=== PATIENT | female | born 1990 | race Caucasian/White ===

== ENCOUNTER 2018-08-24 19:38 | Observation (INO) | payer BC ==
[~2018-08-24] VITALS: Ht 172.7 cm; Wt 100.0 kg
[2018-08-24 20:17] LABS: BASOPHILS # (AUTO) 0.09 x10^3/uL (0-0.1); BASOPHILS % (AUTO) 1 % (0-1); EOSINOPHILS # (AUTO) 0.09 x10^3/uL (0-0.4); EOSINOPHILS % (AUTO) 1 % (1-7); LYMPHOCYTES # (AUTO) 1.51 x10^3/uL (1-3.4); LYMPHOCYTES % (AUTO) 11 % (22-44); MD NO; MEAN CORPUSCULAR HEMOGLOBIN 29.6 pg (27.0-34.8); MEAN CORPUSCULAR HGB CONC 34.1 g/dL (32.4-35.8); MEAN CORPUSCULAR VOLUME 86.8 fL (80-100); MEAN PLATELET VOLUME 10.8 fL (7.4-10.4); MONOCYTES # (AUTO) 0.45 x10^3/uL (0.2-0.8); MONOCYTES % (AUTO) 3 % (2-9); NEUTROPHILS # (AUTO) 11.43 x10^3/uL (1.8-6.8); NEUTROPHILS % (AUTO) 84 % (42-75); PLATELET COUNT 194 x10^3/uL (130-400); RED CELL DISTRIBUTION WIDTH 11.8 % (9.6-15.2)
[2018-08-24 20:23] LABS: MICROSCOPIC AUTO
[2018-08-24 20:23] LABS: ALANINE AMINOTRANSFERASE 17 U/L (12-78); ALBUMIN 3.2 g/dL (3.4-5.0); ANION GAP 10 mmol/L (5-15); CALCIUM 9.3 mg/dL (8.5-10.1); CHLORIDE 108 mmol/L (98-107)
[2018-08-24 20:24] LABS: CULTURE INDICATED? YES
[2018-08-24 20:40] LABS: ALKALINE PHOSPHATASE 73 U/L (45-117); BILIRUBIN,TOTAL 0.2 mg/dL (0.2-1.0); CREATININE 0.54 mg/dL (0.55-1.02); TOTAL PROTEIN 6.9 g/dL (6.4-8.2)
[2018-08-25] MEDS ORDERED: ONDANSETRON 2MG/ML, 2ML ONE ×2 (00:14→01:31)
[2018-08-25] MEDS ORDERED: MORPHINE SULFATE 4 MG/ML, 1ML ONE ×2 (00:14→04:41)
[2018-08-25] MEDS ORDERED: ONDANSETRON 2MG/ML, 2ML IVPush ONE (00:30)
[2018-08-25] MEDS ORDERED: MORPHINE SULFATE 4 MG/ML, 1ML IVPush PRN ×2 (00:30→02:00)
[2018-08-25] MEDS ORDERED: BUPIVACAINE/PF-EPI 0.5% 1:200K ONE (01:08)
[2018-08-25] MEDS ORDERED: ROCURONIUM 10MG/ML,5ML ONE (01:30)
[2018-08-25] MEDS ORDERED: PROPOFOL 10 MG/ML, 20ML ONE (01:30)
[2018-08-25] MEDS ORDERED: SUCCINYLCHOLINE 20 MG/ML, 10ML ONE (01:30)
[2018-08-25] MEDS ORDERED: FENTANYL PF 250 MCG/5ML ONE (01:30)
[2018-08-25] MEDS ORDERED: DEXAMETHASONE 4 MG/ML, 1ML ONE (01:31)
[2018-08-25] MEDS ORDERED: ACETAMINOPHEN 325 MG TABLET PO PRN (02:00)
[2018-08-25] MEDS ORDERED: ONDANSETRON 2MG/ML, 2ML IV PRN (02:00)
[2018-08-25] MEDS ORDERED: ALBUTEROL SULFATE 2.5 MG/3 ML NPPB PRN (02:00)
[2018-08-25] MEDS ORDERED: MEPERIDINE/PF 25MG/0.5ML IVPush PRN (02:00)
[2018-08-25] MEDS ORDERED: ONDANSETRON ODT 8 MG PO PRN (02:00)
[2018-08-25] MEDS ORDERED: HYDROmorphone 2 MG/ML, 1ML IVPush PRN (02:00)
[2018-08-25] MEDS ORDERED: FENTANYL PF 100 MCG/2ML IV PRN (02:00)
[2018-08-25] MEDS ORDERED: PROMETHAZINE 25 MG/ML, 1ML IV PRN (02:00)
[2018-08-25] MEDS ORDERED: hydrALAzine 20 MG/ML, 1ML IV PRN (02:00)
[2018-08-25] MEDS ORDERED: PROMETHAZINE 12.5 MG SUPP PR PRN (02:00)
[2018-08-25] MEDS ORDERED: OXYcodone 5 MG/5 ML ORAL.SOL UDC PO PRN (02:00)
[2018-08-25] MEDS ORDERED: LABETALOL 5MG/ML, 20ML IV PRN (02:00)
[2018-08-25] MEDS ORDERED: EPHEDRINE 50 MG/ML, 1ML IVPush PRN (02:00)
[2018-08-25] MEDS ORDERED: BUPIVACAINE/PF-EPI 0.5% 1:200K INFIL ONE (02:07)
[2018-08-25] MEDS ORDERED: FENTANYL PF 100 MCG/2ML ONE ×2 (02:43→02:59)
[2018-08-25] MEDS ORDERED: morphine SULFATE 10 MG/ML, 1ML IVPush PRN (03:00)
[2018-08-25] MEDS ORDERED: ONDANSETRON 2MG/ML, 2ML IVPush PRN (03:00)
[2018-08-25] MEDS ORDERED: MEPERIDINE/PF 50 MG/ML ONE (03:04)
[2018-08-25] MEDS ORDERED: HYDROmorphone 2 MG/ML, 1ML ONE (03:12)
[2018-08-25] MEDS ORDERED: D5%-0.45NACL+KCL 20MEQ 1,000 ML IV SCH (04:00)
[2018-08-25] MEDS ORDERED: CEFOTETAN PMX 1GM/50ML 50 ML IVPB SCH (04:00)
[2018-08-25] MEDS: OXYcodone/APAP 7.5/325MG TABLET PO PRN ×2 (06:29→11:51)
[2018-08-25 08:51] VITALS: BP 103/64
[2018-08-25] MEDS ORDERED: OXYC-306 PO (09:14)
[2018-08-25] MEDS ORDERED: CEFOTETAN 1 GM ONE (13:39)
[2018-08-25 14:10] VITALS: BP 108/62
== END 2018-08-25 15:24 | disposition home or self-care (01) ==
LOC: ED 23:59 → INTOOBSV 08-25 00:50 → EDIP 08-25 00:50 → 4NOR 08-25 03:50 → DCLOUNGE 08-25 15:13
PROVIDERS: ADMIT Surgery; ATTEND Surgery
DX: K35.30 Acute appendicitis with localized peritonitis, without perforation or gangrene (principal); O99.612 Diseases of the digestive system complicating pregnancy, second trimester; O23.12 Infections of bladder in pregnancy, second trimester; Z3A.16 16 weeks gestation of pregnancy
CPT/HCPCS: 36415; 44950; 74181; 76815; 80053; 81001; 84702; 85025; 87086; 88304; 96365; 96375; 96376; 99284; G0378; J0330; J1100; J1170; J2175; J2270; J2405; J2704; J3010; J3480; J3490